=== PATIENT | male | born 1945 | race Caucasian/White ===

== ENCOUNTER → 2017-02-11 | Outpatient (CLI) | payer OTHER ==
[~2017-02-11] MED LIST: AGM875 PO; ASCA500 PO; OMEG10007 PO; PRLSR20 PO
[2017-02-11 09:41] LABS: URINE APPEARANCE CLEAR (CLEAR); URINE BILIRUBIN NEG (NEG); URINE COLOR YELLOW; URINE NITRITE NEG (NEG); URINE SPECIFIC GRAVITY 1.018 (1.000-1.030); UROBILINOGEN NEG (NEG)
[2017-02-11 09:41] LABS: BASO % 0.3 %; BASO ABS # 0.02 K/uL (0-0.2); COMPLETE YES; EOS % 3.5 %; HEMATOCRIT 40.6 % (42-52); IG% 0.1 %; LYMPH % 21.5 %; LYMPH ABS # 1.58 K/uL (1.2-3.4); MEAN CELL VOLUME 87.1 fL (80-100); MEAN CORPUSCULAR HEMOGLOBIN 29.2 pg (25-34); MEAN CORPUSCULAR HGB CONC 33.5 g/dl (32-36); MEAN PLATELET VOLUME 10.8 fL (7.4-10.4); MONO % 14.8 %; NEUT % 59.8 %; PLATELET COUNT 255 K/uL (130-400); RED BLOOD COUNT 4.66 M/uL (4.7-6.1); WHITE BLOOD COUNT 7.36 K/uL (4.8-10.8)
[2017-02-11 09:57] LABS: MANUAL MICROSCOPIC REQUIRED? NO; REVIEW REQ? NO
[2017-02-11 09:57] LABS: ALT/SGPT 23 U/L (12-78); AST/SGOT 15 U/L (15-37); BLOOD UREA NITROGEN 23 mg/dl (7-18); BUN/CREATININE RATIO 23.1 (10-20); CALCIUM 9.5 mg/dl (8.5-10.1); CARBON DIOXIDE 29 mmol/L (21-32); CHLORIDE 106 mmol/L (98-107); CHOLESTEROL 153 mg/dl (0-200); GLUCOSE 92 mg/dl (70-99); POTASSIUM 3.9 mmol/L (3.5-5.1); SODIUM 141 mmol/L (136-145); TRIGLYCERIDES 121 mg/dl (0-150); VERY LOW DENSITY LIPOPROT CALC 24 mg/dl
[2017-02-11 10:08] LABS: ALB/GLOB RATIO 0.8 (0.9-2); ALKALINE PHOSPHATASE 99 U/L (45-117); CHOLESTEROL/HDL RATIO 3.5; HDL CHOLESTEROL 44 mg/dl; LDL CHOLESTEROL CALCULATED 85 mg/dl
--- NOTE | 2017-02-19 13:13 | CODING QUERY MEDICAL NECESSITY ---
CQSUPPORTING DIAGNOSIS NEEDED A supporting diagnosis is required for the test/procedure performed on this patient in order for us to be reimbursed by the patient's insurance. Please provide a supporting diagnosis for the following test/procedure listed below next to the test name along with your signature. *If there is no additional diagnosis for this patient that would support the following test/procedure please document that below next to the test/procedure. Test(s)/Procedure(s) that require a supporting diagnosis: DOS 02/11/17 PROSTATE SPECIFIC (PSA) TEST Provider Signature: Date: Thank you Mary Grace Saucedo Health Information Management Once completed, please kindly fax back to [phone] For questions please call [phone]
== END | disposition home or self-care (01) ==
LOC: C.LAB1850 07:19
PROVIDERS: ATTEND Internal Medicine Pulmonary Disease
DX: I10 Essential (primary) hypertension (principal); E78.5 Hyperlipidemia, unspecified; N52.9 Male erectile dysfunction, unspecified

== ENCOUNTER 2023-07-13 05:13 | Observation (INO) ==
--- NOTE | 2023-06-19 13:56 | PAT Medication Instructions ---
Medication Instructions Date of Service June 19, 2023 Home Medications ascorbic acid (vitamin C) 1,000 mg tablet (Vitamin C) 1 g PO QAM atorvastatin 10 mg tablet 10 mg PO QAM losartan 50 mg tablet 50 mg PO QAM meloxicam 7.5 mg tablet 7.5 mg PO BID PRN ASK your surgeon for instructions meloxicam 7.5 mg tablet 7.5 mg PO BID PRN DO NOT take the morning of surgery ascorbic acid (vitamin C) 1,000 mg tablet (Vitamin C) 1 g PO QAM losartan 50 mg tablet 50 mg PO QAM Take morning of surgery With a small sip of water, OTHERWISE NOTHING TO EAT OR DRINK AFTER MIDNIGHT: atorvastatin 10 mg tablet 10 mg PO QAM Other Notes If you have any questions please call us at [phone] or [phone] or [phone] or [phone]
--- NOTE | 2023-06-30 15:26 | Anesthesiology Consultation ---
Date of Service June 30, 2023 Assessment & Plan (1) Encounter for pre-operative examination: - awaiting [place] PCP pre-operative evaluation and booking change to overnight. - Case discussed in detail with Dr. Lou including visual changes and brain MRI after surgery, abnormal EKG and outpatient joint request with home support individual age of 82 y/o. He advised patient is not acceptable for outpatient joint program, advised he needs PCP medical clearance prior to surgery given overall co-morbidities and age; and if cleared by PCP and at baseline regarding cough as noted below, patient can proceed without further evaluation or testing prior to surgery from his standpoint. I contacted patient who verbalized understanding and states will await call for PCP clearance appointment. Surgeon's office and OR made aware. - COVID positive 06/25/23 with residual cough productive of yellow sputum. Denies shortness of breath, wheezing, pharyngitis, fever or chills. He states paxlovid course is completed. He was instructed to call PAT if cough is not resolved by Thursday before surgery. Chart Review Chart Review: Pending: Refer to Additional Notes / Consult section and Patient seen in Pre Admission Testing Teaching & Discussion Pre-Anesthesia Teaching/Discussion Notes: Instructed NPO after midnight before surgery, except medications with 15 cc of water. Medication instructions provided according to the PAT guidelines. History Surgery Operation Date: 07/13/23 07:15 Proposed Procedures p OP: Right Anterior Total Hip Arthroplasty - Puneet Carrera DO Height/Weight Height: 5 ft 7.5 in Weight: 71.6 kg Allergies Allergy/AdvReac Type Severity Reaction Status Date / Time No Known Allergies Allergy Mild Verified 06/19/23 13:08 Medications Home Medications Medication Instructions Recorded Confirmed Last Taken ascorbic acid (vitamin C) 1,000 mg 1 g PO QAM 06/19/23 06/19/23 Unknown tablet (Vitamin C) atorvastatin 10 mg tablet 10 mg PO QAM 06/19/23 06/19/23 Unknown losartan 50 mg tablet 50 mg PO QAM 06/19/23 06/19/23 Unknown meloxicam 7.5 mg tablet 7.5 mg PO BID PRN Pain 06/19/23 06/19/23 Unknown nirmatrelvir 300 mg (150 mg See Rx Instructions PO .COMPLEX 06/25/23 Unknown x2)-ritonavir 100 mg tablet,dose #30 ea pack lansoprazole 15 mg capsule,delayed 15 mg PO QAM 06/30/23 06/30/23 Unknown release Past Medical History Medical History GERD (gastroesophageal reflux disease) controlled, stable per pt Hearing loss B/L hearing aids History of bleeding peptic ulcer Approximately age 48; no current issues History of blood transfusion in setting of bleeding ulcer in past History of COVID-19 06/25/2023 positive-residual cough and 04/2023 (home test)- loss taste/smell, cold symptoms, fever History of double vision 05/2023, experienced double vision (improving) Follows with Dr. Nguyen, awaiting brain MRI scheduled 08/04/2023 Hyperlipidemia Hypertension controlled, stable per pt Patient denies h/o seizures, heart attack, heart failure, DM, blood clots/DVTs or blood transfusions. Exercise / Class Metabolic Activity II 4-5 Yardwork/Stairs/Walk up hill (denies chest discomfort or shortness of breath with 1 FOS) Past Family History Family History Mother Colon cancer Parkinson disease Past Surgical History Surgical History History of colonoscopy (2011) History of esophagogastroduodenoscopy (EGD) History of tonsillectomy Past Anesthesia History No Hx of Anesthesia Complications and No Family Hx of Anesthesia Complications History of PONV No Hx of PONV and No Hx of Motion Sickness Social History Smoking Status: Never smoker Do You Dip or Chew Tobacco: No Hx Alcohol Use: Yes Alcohol type: beer alcohol intake frequency: holidays/special occasions only Hx Substance Use: No substance use type: does not use Review of Systems Snoring, denies witnessed apneas. Patient denies chest pain, shortness of breath, dyspnea on exertion, or palpitations. Physical Exam Vital Signs Vitals BP 141/90 P 94 TEMP 97.9 SP02 95% on RA RESP 17 Physical Patient resting comfortably in chair in no acute distress, alert and oriented, responding appropriately throughout visit Full cervical extension range of motion without pain TMD 3.5 finger breadths Mallampati Score 2 Dentition: one cap, denies chipped or loose teeth, crowns, implants or bridges Lungs: normal respiratory effort. Good air movement, clear throughout to auscultation, no adventitious breath sounds Cardiac: regular rate and rhythm, no murmurs noted Carotid arteries: negative bruit bilat Lab Results Anesthesia Preop Results Results Anesthesia Widget: WBC 8.17 K/ul (4.8-10.8) 06/30/23 Hgb 13.4 g/dl (14.0-18.0) L 06/30/23 Hct 40.3 % (42.0-52.0) L 06/30/23 Plt 284 K/uL (130-400) 06/30/23 Na 139 mmol/L (136-145) 06/30/23 K 4.2 mmol/L (3.5-5.1) 06/30/23 Cl 104 mmol/L (98-107) 06/30/23 CO2 28 mmol/L (21-32) 06/30/23 BUN 24 mg/dl (6-23) H 06/30/23 Creat 1.03 mg/dl (0.6-1.4) 06/30/23 Glucose Level 98 mg/dl (70-99(Fasting)) 06/30/23 PT 10.6 Seconds (9.0-12.0) 06/30/23 PTT 31 Seconds (21-31) 06/30/23 INR 1.0 (0.9-1.1) 06/30/23 TSH 0.580 uIu/ml (0.300-4.500) 05/11/23 Blood Type O Positive 06/30/23 Antibody Screen NEGATIVE 06/30/23 Testing Electrocardiogram Date: 06/30/23 NSR, rate 92 bpm Possible inferior infarct, age undetermined No significant change vs 04/28/96 EKG Chest X-Ray Date: 06/30/23 No acute process.
[2023-07-13] MEDS ORDERED: TRANEXAMIC ACID 1,000 MG **IV Pre-op IV SCH (06:00)
[2023-07-13] MEDS ORDERED: ceFAZolin 2000MG 2,000 MG/15 ML SYR IV SCH (06:00)
[2023-07-13] MEDS ORDERED: LR 60ML/HR IV SCH (06:00)
[2023-07-13] MEDS ORDERED: GABAPENTIN 300 MG CAP PO SCH (06:00)
[2023-07-13] MEDS ORDERED: TRANEXAMIC ACID 1,000 MG **IV Intra-op IV SCH (06:00)
[2023-07-13] MEDS ORDERED: LR 500ML BOLUS, THEN 15ML/HR IV SCH (06:00)
[2023-07-13] MEDS ORDERED: FAMOTIDINE 20 MG TAB PO SCH (06:00)
[2023-07-13] MEDS ORDERED: dexAMETHasone**PF** 10 MG/ML VIAL IV SCH (06:00)
[2023-07-13] MEDS ORDERED: ACETAMINOPHEN 500 MG TAB PO SCH (06:00)
[2023-07-13] MEDS ORDERED: ROPIV 0.5% 246mg, Ketorolac 30mg, EPINEPHrine 0.5mg in NSS INFIL SCH (06:00)
[2023-07-13] MEDS ORDERED: BUPIVACAINE 0.5 % 5 MG/1 ML PF 10ML VIAL ONE (06:08)
--- NOTE | 2023-07-13 06:21 | History & Physical Bridge Note ---
Date of Service July 13, 2023 History & Physical Bridge Note I have examined the patient, reviewed the History & Physical and in the interval since the performance of the History & Physical I have noted the following changes of clinical significance: no changes noted
[2023-07-13] MEDS ORDERED: fentaNYL citrate PF 100 MCG/2 ML VIAL ONE (06:52)
[2023-07-13] MEDS ORDERED: MIDAZOLAM HCL 1 MG/ML 2ML VIAL ONE (06:52)
[2023-07-13] MEDS ORDERED: ePHEDrine sulfate 50 MG/ML AMP IV PRN (06:55)
[2023-07-13] MEDS ORDERED: ONDANSETRON INJ 2 MG/ML 2 ML VIAL IV PRN ×2 (06:55→10:07)
[2023-07-13] MEDS ORDERED: fentaNYL citrate PF 100 MCG/2 ML VIAL IV PRN (06:55)
[2023-07-13] MEDS ORDERED: ATROPINE SULFATE 0.1 MG/ML 10ML SYR IV PRN (06:55)
[2023-07-13] MEDS ORDERED: ORTHO JOINT ANESTHETIC ONE (06:58)
[2023-07-13] MEDS ORDERED: PROPOFOL IV EMULSION 10 MG/ML 20 ML VIAL IV ONE (07:25)
[2023-07-13] MEDS ORDERED: ONDANSETRON INJ 2 MG/ML 2 ML VIAL ONE (07:25)
[2023-07-13] MEDS ORDERED: ARISTA ABSORBABLE HEMOSTAT 3GM TOP ONE (07:50)
[2023-07-13] MEDS ORDERED: ePHEDrine sulfate 50 MG/5 ML SYR ONE (08:28)
[2023-07-13] MEDS ORDERED: PHENYLEPHRINE 100MCG/ML 10ML SYR IV ONE (08:28)
--- NOTE | 2023-07-13 08:50 | Fluoroscopy Report ---
FL hip RT 1V CLINICAL HISTORY: RIGHT ANTERIOR HIPright hip arthroplasty COMPARISON STUDY: 06/30/2023 FLUOROSCOPY TIME: 10.7 seconds FLUOROSCOPY IMAGES: 1 EXPOSURE DOSE: 0.8632 mGy FINDINGS: Right hip arthroplasty demonstrates satisfactory alignment. Expected postoperative soft tis naa swelling with deep tissue air. IMPRESSION: Fluoroscopic assistance as above. ACT 112: Negative or not required by law. Electronically signed by: Jordin Costello M.D. 07/13/2023 8:48 AM
--- NOTE | 2023-07-13 09:29 | Operative Report ---
PG Post Operative Report Pre & Post Diagnosis Operation Date: 07/13/23 07:15 Pre-Op Diagnosis: Degenerative Joint Disease Right Hip Post-Op Diagnosis: Degenerative Joint Disease Right Hip I identified the patient and participated in the time-out.: Yes Procedure Operation Date: 07/13/23 07:15 Actual Procedures p Right Anterior Total Hip Arthroplasty, Uncemented(Right) - Puneet Carrera DO Surgeon Puneet Carrera DO [employer] Puneet Brown PA-C Estimated Blood Loss 150 Findings Consistent with Post-Op Diagnosis Specimens Right femoral head Description of Procedure Implants used I used a ZimmerBiomet total hip arthroplasty system with a size 5 high offset Avenir Complete stem, a 50 mm G7 cup with a 25mm screw, an E1 polyethylene liner, a 36 mm ceramic head with a 0 neck. Abdirahman arrived at the hospital for the above procedure. She was seen in the preoperative holding area and the operative extremity was identified and signed. She was given a spinal anesthetic, a preoperative antibiotic, and TXA. She was then taken back to the operating room and laid on the table in the supine position. She was given basic sedation. The operative leg was secured to a Puristst leg positioner. The hip was then prepped and draped in sterile fashion. A timeout was done and the patient and the operative extremity was pr operly identified. An anterior approach was used. Dissection was taken down through the fascia and the tensor muscle belly was retracted laterally and the rectus was retracted medially. The circumflex vessels were identified and ligated. The capsule was then incised and tagged for later repair. The femoral neck was then cut and the femoral head was removed. The acetabulum was exposed. Time was spent doing a complete circumferential labral release. Sequential reaming of the acetabulum up to a size 49 reamer was done. Final reamings were done under fluoroscopy to ensure appropriate version. A Biomet 50 mm G7 cup was then impacted into place. A single 25 mm screw was placed. The E1 polyethylene liner was then snapped into place. Surrounding soft tissues were then injected with 100 cc of an orthopedic pain control cocktail. The proximal femur was then exposed. Sequential broaching up to a size 5 broach was done. Off that broach a size 36 head with a 0 neck was trialed. The hip was reduced and fluoroscopic images showed anatomic alignment of the implants in acceptable length. The broach was removed. The final size 5 high offset Avenir Complete stem was then impacted into place. A ceramic 36 mm head with a 0 neck was then impacted onto the stem and the hip was reduced. Final fluoroscopic images showed anatomic alignment of the hip. The capsule was then closed with #1 Vicryl suture. A dilute betadyne lavage was then done for 3 minutes. The joint was then irrigated with normal saline solution. The fascia was closed with #1 PDS suture. Skin was closed with 2-0 Vicryl, yosef, and a Silverlon dressing. She was then transferred to a hospital bed and taken to the post anesthesia care unit in stable condition. She tolerated the procedure well. Puneet Brown PA-C, was present for the entire procedure. He was critical for patient positioning, prepping, draping, retraction exposure, wound closure and application of sterile dressing. I attest to the content of the Intraoperative Record and any orders documented therein. Any exceptions are noted below.
--- NOTE | 2023-07-13 10:00 | XRay Report ---
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 Right hip arthroplasty. Lateral skin yosef with expecte d postoperative soft tissue swelling and deep tissue air. Arterial calcifications. No acute fracture, dislocation or opaque foreign body. IMPRESSION: Right hip arthroplasty with expected postoperative changes. ACT 112: Negative or not required by law. The above report was generated using voice recognition software. It may contain grammatical, syntax o r spelling errors. Electronically signed by: Jordin Costello M.D. 07/13/2023 9:58 AM
[2023-07-13] MEDS ORDERED: HYDROmorphone INJ 0.5 MG/0.5 ML SYR IV PRN (10:07)
[2023-07-13] MEDS ORDERED: oxyCODONE HCL IR 5 MG TAB (IMMEDIATE RELEASE) PO PRN (10:07)
[2023-07-13] MEDS ORDERED: MAGNESIUM HYDROXIDE SUSP 30 ML UDC PO PRN (10:07)
[2023-07-13] MEDS ORDERED: NALOXONE HCL 0.4 MG/1 ML VIAL/CARP IV PRN (10:07)
[2023-07-13] MEDS ORDERED: METOCLOPRAMIDE HCL INJ 5 MG/ML 2 ML VIAL IV PRN (10:07)
[2023-07-13] MEDS ORDERED: bisacodyL 10 MG SUPP PR PRN (10:07)
[2023-07-13] MEDS ORDERED: SODIUM CHLORIDE 0.9% 1,000 ML IV SCH (10:07)
--- NOTE | 2023-07-13 10:29 | Anesthesiology Progress Note ---
Date of Service July 13, 2023 Anesthesia Post Procedure Vital Signs Vital Signs: Temp Pulse Pulse Resp BP Pulse Ox O2 Del Method 07/13/23 10:10 97.5 F L 94 H 18 143/84 H 94 Room Air 07/13/23 09:40 73 17 124/67 97 Nasal Cannula 07/13/23 09:25 97.2 F L 94 H 14 136/76 99 Nasal Cannula 07/13/23 09:15 95 H 14 127/70 95 Room Air 07/13/23 09:05 96 H 20 124/71 99 Oxymask 07/13/23 08:55 98.6 F 101 H 21 97/63 L 98 Oxymask 07/13/23 05:46 98.6 F 98 H 20 177/88 H 96 Room Air O2 Flow Rate 07/13/23 10:10 07/13/23 09:40 2 07/13/23 09:25 2 07/13/23 09:15 07/13/23 09:05 3 07/13/23 08:55 6 07/13/23 05:46 Transfer of Care Handoff Completed per policy Notes Mental Status: alert / awake / arousable and participated in evaluation Patient Amnestic to Procedure: Yes Nausea / Vomiting: adequately controlled Pain: adequately controlled Airway Patency, RR, SpO2: stable & adequate BP & HR: stable & adequate Hydration State: stable & adequate Neuraxial Anesthesia: was administered and sensory block is resolving Anesthetic Complications: no major complications apparent and Pt Satisfied with anesthetic care
[2023-07-13] MEDS: KETOROLAC TROMETHAMINE 15 MG/ML VIAL IV SCH ×3 (11:12→23:35)
[2023-07-13] MEDS: MULTIVITAMIN TAB PO SCH (11:13)
[2023-07-13] MEDS: PANTOprazole 40 MG TAB PO SCH (11:13)
[2023-07-13] MEDS: LOSARTAN POTASSIUM 50 MG TAB PO SCH (11:13)
[2023-07-13] MEDS: ATORVASTATIN 10 MG TAB PO SCH (11:13)
[2023-07-13] MEDS: DOCUSATE SODIUM 100 MG CAP PO SCH ×2 (11:13→20:21)
[2023-07-13] MEDS: ACETAMINOPHEN 500 MG TAB PO SCH ×2 (13:15→21:33)
[2023-07-13] MEDS: ceFAZolin 2000MG 2,000 MG/15 ML SYR IV SCH ×2 (14:20→23:35)
[2023-07-13] MEDS: ASPIRIN 81 MG ECTAB PO SCH (16:56)
[2023-07-13] MEDS ORDERED: SENNA 8.6 MG TAB PO SCH (21:00)
[2023-07-14] MEDS: KETOROLAC TROMETHAMINE 15 MG/ML VIAL IV SCH ×2 (05:28→10:00)
[2023-07-14] MEDS: ACETAMINOPHEN 500 MG TAB PO SCH (05:28)
[2023-07-14] MEDS ORDERED: dexAMETHasone 4 MG TAB PO SCH (08:00)
[2023-07-14] MEDS: ATORVASTATIN 10 MG TAB PO SCH (08:39)
[2023-07-14] MEDS: MULTIVITAMIN TAB PO SCH (08:39)
[2023-07-14] MEDS: DOCUSATE SODIUM 100 MG CAP PO SCH (08:39)
[2023-07-14] MEDS: ASPIRIN 81 MG ECTAB PO SCH (08:39)
[2023-07-14] MEDS: PANTOprazole 40 MG TAB PO SCH (08:39)
[2023-07-14] MEDS: LOSARTAN POTASSIUM 50 MG TAB PO SCH (08:39)
--- OUTSIDE RECORDS SUMMARY | 2023-07-14 10:22 | External Medical Summary | Summary of Care ---
Author Name Unknown Organization [facility] Address [address] [place] [address] Phone [phone] Care Team Providers Care Security Director Name Role Phone Unavailable Primary Care Provider Unavailabl e Reason for Visit * Reason Onset Date Comments Appointment 07/13/2023 Encounter Details Date Type Department Care Team (Late st Contact Info) Description 07/13/2023 Telephone Gastroenterology, [facility] [address] [facility] [place] [phone] Services, Scheduling [address] [place] [address] Appointment Allergies No known active allergiesdocumented as of this encounter (statuses as of 07/13/2023) Medications Medication Sig Dispensed Refills Start Date End Date Status PRILOSEC OTC 20 MG PO TBEC 1 tablet daily 0 Active LOSARTAN POTASSIUM 50 MG PO TABS one tablet daily 0 Active predniSONE 10 MG Oral Tablet (Deltasone)Indications: Lumbar radiculopathy Take 5 tabs for 2 days, 4 tabs for 2 days, 3 tabs for 2 days, 2 tabs for 2 days 1 tab for 2 days 30 Tablet 0 05/15/2022 Active documented as of this encounter (statuses as of 07/13/2023) Social History Tobacco Use Types Packs/Day Years Used Date Smoking Tobacco: Never Smokeless Tobacco: Never Alcohol Use Standard Drinks/Week Comments Yes 0 (1 standard drink = 0.6 oz pur e alcohol) Sex and Gender Information Value Date Recorded Sex Assigned at Not on file Gender Identity Not on file Sexual Orientation Not on file Job Start Date Occupation Industry Not on file Not on file Not on file documented as of this encounter Miscellaneous Notes * Telephone Encounter - Anny March OSA - 07/13/2023 1:41 PM EST Patient recently had hip surgery and will need to RS appointment for colonoscopy at this time. Please assist documented in this encounter Plan of Treatment Upcoming Encounters Date Type Department Care Team (Latest Contact Info) Description 07/22/2023 9:00 AM EST Hospital Encounter [facility]O [facility], Endoscopy Room [facility] [address] [place] [phone] Simran Lozano MD [address] [place] [address] 07/22/2023 9:00 AM EST - 07/22/2023 9:30 AM EST Surgery ENDO [facility], Endoscopy Room [facility] [address] [place] [phone] Simran Lozano MD [address] [place] [address] COLONOSCOPY FLEXIBLE PROXIMAL DIAGNOSTIC Scheduled Procedures Name Priority Associated Diagnoses Date/Ti me COLONOSCOPY FLEXIBLE PROXIMA L DIAGNOSTIC Anemia 07/22/2023 9:00 AM EST Health Maintenance Due Date Last Done Comments COVID-19 Vaccine (#1) 06/21/1946 Depression Screening 1957 Hepatitis C Screening 12/19/1961 DTaP,Tdap,and Td Vaccines (1 - Tdap) 12/19/1962 Zoster Vaccines (1 of 2) 12/19/1993 Pneumococcal Vaccine: 65+ Ye ars (1 - PCV) 12/19/2008 COLONOSCOPY-EVERY 5 YRS AGES 18-100 08/04/2016 08/04/2011 Influenza Vaccine (FLU shot) (#1) 2023 GARDASIL-HPV IMMUNIZATION SERIES Aged Out No longer eligible based on patient's age to complete this topic Hepatitis B Aged Out No longer eligi ble based on patient's age to complete this topic MENINGOCOCCAL (MENACTRA/MENVEO) Aged Out No longer eligible based on patient's age to complete this topic documented as of this encounter Medical Devices Not on filedocumented as of this encounter
--- NOTE | 2023-07-14 12:06 | Orthopedic Progress Note ---
Date of Service July 14, 2023 Assessment & Plan (1) Status post right hip replacement: Overall, he is doing quite well today with good pain control to the right hip. He will work with physical therapy later this morning work on ambulation and range of motion exercises. He is on aspirin for DVT prophylaxis. He can be discharged home later this morning pending physical therapy evaluation. He will follow-up with orthopedics in 2 weeks for postoperative care. Subjective . Abdirahman was seen and evaluated this morning resting comfortably in bed in no apparent distress. He notes that his right hip pain is well-controlled. He has been up and ambulating with no significant issues. He has yet to be seen by physical therapy this morning. He denies any other concerns today. Review of Systems All systems reviewed & are unremarkable except as noted in HPI & below. Physical Exam . On physical examination of right hip, dressing is clean, dry, intact. His leg is out in full extension. He has active plantarflexion and dorsiflexion to the right ankle. +2 DP and PT pulses. Less than 2-second capillary refill. Normal sensation. Neurovascular intact. Results & Data Results & Data Laboratory Results . Diagnostic Findings . Postoperative x-rays of the right hip show prosthesis to be in anatomical alignment with no signs of fracture complication or loosening. PG Care Time/CCT Total # of Minutes Spent Total Time Spent with Patient: Total time spent is greater than 50% in coordination of care (as documented) at patient's floor/unit and/or counseling patient: Coding Level of Care Code 63016 Post Operative Follow-Up Diagnoses Status post right hip replacement Z96.641
--- NOTE | 2023-07-14 12:08 | Discharge Summary ---
Date of Service July 14, 2023 Principal Diagnosis Same as "Discharge Diagnosis" noted below under Discharge Instructions. Discharge Exam . On physical examination of right hip, dressing is clean, dry, intact. His leg is out in full extension. He has active plantarflexion and dorsiflexion to the right ankle. +2 DP and PT pulses. Less than 2-second capillary refill. Normal sensation. Neurovascular intact. Discharge Data Procedures Performed Operation Date: 07/13/23 07:15 Actual Procedures p Right Anterior Total Hip Arthroplasty, Uncemented(Right) - Puneet Carrera DO Ordered Studies 07/13/23 07:15 FL hip RT 1V Routine Hospital Course (1) Status post right hip replacement: On July 13, 2023 Abdirahman arrived at [facility] and underwent a right anterior total hip arthroplasty performed by Dr. Carrera with no complications. He had a spinal anesthetic. Postoperatively, he was started on aspirin for DVT prophylaxis and transferred to the general orthopedic floor in stable condition. His hospital course was uneventful. On postoperative day #1, his vital signs were stable and his pain was well-controlled. He participated well with physical therapy work on ambulation and range of motion exercises. He was then discharged home in stable condition. He will follow-up with orthopedics in 2 weeks for postoperative care. PG Care Time/CCT Total # of Minutes Spent Total Time Spent with Patient: Total time spent is greater than 50% in coordination of care (as documented) at patient's floor/unit and/or counseling patient: Discharge Plan Discharge Items Patient Disposition: Home - Home Health Services Reason For Visit: Degenerative Joint Disease Right Hip Discharge Diagnosis: Same Activity: Per Instructions section Non-emergency contact: Surgeon Call non-emergency contact if: your temperature is above 101.5, your wound has increased redness and your wound has increased drainage Follow-up/Referrals: Luke Newman MD [Primary Care Provider] - Diet: Regular Addtl Attending Provider Instructions: Activity and Therapy Recommendations: * If you are using [facility] then therapy will be provided at your home until they feel you have accomplished all of your goals. * If you are using [facility] then Physical Therapy will be provided until they feel you are ready to start Outpatient Physical Therapy. * If you are not using home therapy then Outpatient Physical Therapy should start about 3-5 days from your day of surgery. Therapy will last about 6-10 weeks * You were shown a series of exercises in the hospital. Do these exercises three times each day including the exercises you were shown in physical therapy. * Get up and walk several times each day.~ For the first four weeks, try not to stand or walk for more than one hour at a time. If you do stand or walk for more than one hour, you will not hurt anything, but your leg will likely swell.~~ * As you feel comfortable, you may change from the walker or crutches to a cane and~then to independent walking. Medications: * Narcotic You will likely be sent home from the hospital with a prescription for the narcotic pain medication that worked best throughout your stay. * Cefadroxil -take the antibiotic twice a day for 10 days to help prevent infection. * Aspirin Most patients will be required to take Aspirin 81mg twice a day for 6 weeks after surgery. This is obtained [id number] and a prescription is not necessary. * Other medications may be prescribed for specific circumstances. If you have any questions, please call the office at . * Resume previous home medications unless otherwise instructed TEDs/Elastic Stockings: The white elastic stockings help limit swelling and prevent blood clots from forming in your legs. The more you wear them, the more they work. Wear them for six weeks. Dressing Care: Leave the Silverlon dressing in place for 7 days. After 7 days you may remove the dressing. If the incision is not draining then you may leave the yosef open to air. If there is a little bit of drainage or if the yosef are getting stuck on your clothing then cover the incision with a dry dressing. The yosef will be removed at your 2 week follow-up appointment. Showering: You may shower with the Silverlon dressing in place. Do not let the shower spray hit the dressing directly. Pat the Silverlon dressing dry. If the dressing becomes wet underneath, then simply remove the dressing. Keep the incision dry until you are 7 days out from the day of surgery. After 7 days you may remove the Silverlon dressing and shower with the yosef exposed. Let soapy water run over the yosef and pat them dry. Do not scrub or soak the incision. Things To Watch For: * Drainage from the incision site that occurs more than one week after your surgery. * Increased redness at the incision site. * Fever above 102 degrees Fahrenheit. * Unusual chest pain or shortness of breath. * Call [facility] at with any of the above problems Follow-Up Visit: Follow-up with Dr. Carrera's PA (Puneet Brown) 2-3 weeks after your day of surgery. He will remove your yosef and answer any questions. If you have any additional questions or concerns, Dr Carrera is usually in the office at the same time and will be available An appointment was probably scheduled when you signed-up for surgery in the office. If you have any questions call Office Instructions: More detailed instructions as well as Frequently Asked Questions were provided in a folder by our office when you signed-up for surgery. Please review these instructions when you get home. If you have any further questions or concerns, please feel free to call the office at [phone] Pending Studies at Discharge: No Stand-Alone Forms: [facility], Smoking Cessation Medications and DC Order Prescriptions: New aspirin 81 mg Tablet,Delayed Release (Dr/Ec) 81 mg PO BID 42 Days Qty: 0 0RF oxycodone 5 mg Tablet 5 mg PO Q6 PRN (Reason: pain) Qty: 30 0RF cefadroxil 500 mg capsule 500 mg PO BID 10 Days Qty: 20 0RF Continued (DME) Wheeled Walker Misc See Rx Instructions .MEDSUPPLY Qty: 1 0RF Rx Instructions: As directed omeprazole 10 mg capsule,delayed release(DR/EC) 10 mg PO DAILY ascorbic acid (vitamin C) [Vitamin C] 1,000 mg Tablet 1 g PO QAM losartan 50 mg tablet 50 mg PO QAM atorvastatin [Lipitor] 10 mg tablet 10 mg PO QAM Rx Instructions: TAKE ONE TABLET BY MOUTH ONE TIME DAILY ascorbic acid (vitamin C) [Vitamin C] 1,000 mg Tablet 1 g PO DAILY Discontinued meloxicam 7.5 mg tablet 7.5 mg PO BID PRN (Reason: Pain) Rx Instructions: take 1 tablet by mouth ONCE or twice a day with food Admission Data Admit Date/Time: 07/13/23 08:55 Attending Provider: Puneet Carrera Admit Provider: Puneet Carrera Primary Care Provider: Luke Newman Other Interventions: Discharge Summary Assessment (RN) Last Done: 07/14/23 10:08
== END 2023-07-14 11:07 | disposition home health service (06) ==
LOC: ASU 05:13 → 3E 05:13

== ENCOUNTER 2023-11-13 06:36 | Observation (INO) ==
--- NOTE | 2023-10-09 09:24 | PAT Medication Instructions ---
Medication Instructions Date of Service October 09, 2023 Home Medications Medication Instructions Recorded losartan 50 mg tablet 50 mg PO QAM #90 tabs 08/11/23 atorvastatin 10 mg tablet (Lipitor) 10 mg PO QAM ascorbic acid (vitamin C) 1,000 mg tablet (Vitamin C) 1 g PO QAM losartan 50 mg tablet 50 mg PO QAM aspirin 81 mg capsule 81 mg PO BID lansoprazole 15 mg capsule,delayed release 15 mg PO QAM naproxen sodium 220 mg capsule (Aleve) 440 mg PO BID PRN Pain tamsulosin 0.4 mg capsule 0.4 mg PO QAM ASK your surgeon for instructions naproxen sodium 220 mg capsule (Aleve) 440 mg PO BID PRN Pain ASK your prescriber and surgeon aspirin 81 mg capsule 81 mg PO BID DO NOT take the morning of surgery ascorbic acid (vitamin C) 1,000 mg tablet (Vitamin C) 1 g PO QAM losartan 50 mg tablet 50 mg PO QAM Take morning of surgery With a small sip of water, OTHERWISE NOTHING TO EAT OR DRINK AFTER MIDNIGHT: atorvastatin 10 mg tablet (Lipitor) 10 mg PO QAM lansoprazole 15 mg capsule,delayed release 15 mg PO QAM tamsulosin 0.4 mg capsule 0.4 mg PO QAM Other Notes If you have any questions please call us at [phone] or [phone] or [phone] or [phone]
--- NOTE | 2023-10-29 14:37 | Anesthesiology Consultation ---
Date of Service October 29, 2023 Assessment & Plan (1) Encounter for pre-operative examination: Plan - PCP office visit 10/19/23 [place]: "... 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 Lozano for a colonoscopy because his mother had colon cancer and he has mild anemia...will set that up for the summer..." - Outpatient joint assessment: Patient is currently scheduled for inpatient pathway. If re-evaluated and patient/surgeon requests outpatient pathway, patient is not recommended candidate for outpatient joint program from anesthesia standpoint. Chart Review Chart Review: Acceptable Risk for Surgery and Patient seen in Pre Admission Testing Teaching & Discussion Pre-Anesthesia Teaching/Discussion Notes: Instructed NPO after midnight before surgery, except medications with 15 cc of water. Medication instructions provided according to the PAT guidelines. History Surgery Operation Date: 11/13/23 11:00 Proposed Procedures p Left Anterior Total Hip Arthroplasty - Puneet Carrera DO Height/Weight Height: 5 ft 7.5 in Weight: 73.9 kg Allergies Allergy/AdvReac Type Severity Reaction Status Date / Time No Known Allergies Allergy Mild Verified 10/19/23 08:09 Medications Home Medications Medication Instructions Recorded Confirmed Last Taken ascorbic acid (vitamin C) 1,000 mg 1 g PO QAM 07/13/23 10/19/23 07/11/23 tablet (Vitamin C) losartan 50 mg tablet 50 mg PO QAM #90 tabs 08/11/23 10/19/23 Unknown aspirin 81 mg capsule 81 mg PO BID 10/08/23 10/19/23 Unknown lansoprazole 15 mg capsule,delayed 15 mg PO QAM 10/08/23 10/19/23 Unknown release tamsulosin 0.4 mg capsule 0.4 mg PO QAM 10/08/23 10/19/23 Unknown atorvastatin 10 mg tablet See Rx Instructions .Route 10/29/23 Unknown .COMPLEX #100 tabs Past Medical History Medical History GERD (gastroesophageal reflux disease) controlled, stable per pt Hearing loss B/L hearing aids History of bleeding peptic ulcer Approximately age 48; no current issues History of blood transfusion In setting of bleeding ulcer in past History of COVID-19 ~06/2023 (home test): symptoms resolved History of double vision 05/2023, experienced double vision (improving)- most is gone Follows with Dr. Nguyen, brain MRI 08/04/2023 - "pretty normal for my age" Hyperlipidemia Hypertension controlled, stable per pt Osteoarthritis of left hip Prostate nodule Possible prostate nodule vs lesion on MRI Being [place] [facility] [place], t/c biopsy after hip surgery Patient denies h/o stroke, seizures, heart attack, heart failure, DM, or blood clots/DVTs. Exercise / Class Metabolic Activity II 4-5 Yardwork/Stairs/Walk up hill (denies chest discomfort or shortness of breath with one flight of stairs) Past Family History Family History Mother Colon cancer Parkinson disease Past Surgical History Surgical History History of colonoscopy (2011) History of esophagogastroduodenoscopy (EGD) History of tonsillectomy History of total right hip arthroplasty (07/13/23) Right anterior LOVE: SAB at L3-4, 1 attempt at [facility] Past Anesthesia History No Hx of Anesthesia Complications and No Family Hx of Anesthesia Complications History of PONV No Hx of PONV and No Hx of Motion Sickness Social History Smoking Status: Never smoker Do You Dip or Chew Tobacco: No Hx Alcohol Use: Yes Alcohol type: beer alcohol intake frequency: a few times a month Hx Substance Use: No substance use type: does not use Review of Systems Snoring, denies witnessed apneas. Patient denies chest pain, shortness of breath, dyspnea on exertion, fever, chills, cough, wheezing, or palpitations. Physical Exam Vital Signs Vitals BP 110/72 P 82 TEMP 98.4 SP02 97% on RA RESP 18 Physical Patient resting comfortably in chair in no acute distress, alert and oriented, responding appropriately throughout visit Full cervical extension range of motion without pain TMD 3.5 finger breadths Mallampati Score 2 Dentition: iseveral caps/crowns, denies chipped or loose teeth, implants or bridges Lungs: normal respiratory effort. Good air movement, clear throughout to auscultation, no adventitious breath sounds Cardiac: regular rate and rhythm, no murmurs noted Carotid arteries: negative bruit bilat Lab Results Anesthesia Preop Results Results Anesthesia Widget: WBC 4.40 K/ul (4.8-10.8) L 10/16/23 Hgb 12.4 g/dl (14.0-18.0) L 10/16/23 Hct 38.0 % (42.0-52.0) L 10/16/23 Plt 178 K/uL (130-400) 10/16/23 Na 141 mmol/L (136-145) 10/16/23 K 4.3 mmol/L (3.5-5.1) 10/16/23 Cl 108 mmol/L (98-107) H 10/16/23 CO2 27 mmol/L (21-32) 10/16/23 BUN 24 mg/dl (6-23) H 10/16/23 Creat 0.99 mg/dl (0.6-1.4) 10/16/23 Glucose Level 100 mg/dl (70-99(Fasting)) H 10/16/23 PT 10.4 Seconds (9.0-12.0) 10/29/23 PTT 29 Seconds (21-31) 10/29/23 INR 1.0 (0.9-1.1) 10/29/23 TSH 0.997 uIu/ml (0.300-4.500) 10/16/23 Urine Color Yellow 10/16/23 Urine Appearance Clear (Clear) 10/16/23 Urine pH 6.0 (4.5-7.5) 10/16/23 Urine Specific [place] 1.015 (1.000-1.030) 10/16/23 Urine Protein Negative (Negative) 10/16/23 Urine Glucose (UA) Negative (Negative) 10/16/23 Urine Ketones Negative (Negative) 10/16/23 Urine Blood Negative (Negative) 10/16/23 Urine Nitrite Negative (Negative) 10/16/23 Urine Bilirubin Negative (Negative) 10/16/23 Urine Urobilinogen Negative (Negative) 10/16/23 Urine Leukocyte Esterase Negative (Negative) 10/16/23 Blood Type O Positive 10/29/23 Antibody Screen NEGATIVE 10/29/23 Testing Electrocardiogram Date: 06/30/23 NSR, rate 92 bpm Possible inferior infarct, age undetermined No significant change vs 04/28/96 Chest X-Ray Date: 06/30/23 *1view* No acute process. Other Testing Brain MRI 08/04/23 1. No acute intracranial abnormality. 2. Involutional changes with suggestion of mild chronic microvascular ischemic disease. 3. No abnormal enhancement.
--- NOTE | 2023-11-13 06:29 | History & Physical Bridge Note ---
Date of Service November 13, 2023 History & Physical Bridge Note I have examined the patient, reviewed the History & Physical and in the interval since the performance of the History & Physical I have noted the following changes of clinical significance: no changes noted
[~2023-11-13 06:36] MED LIST changes: -AGM875 PO; -ASCA500 PO; +BUPIVACAINE 0.5 % 5 MG/1 ML PF 10ML VIAL ONE; -OMEG10007 PO; -PRLSR20 PO
[2023-11-13] MEDS ORDERED: PROPOFOL IV EMULSION 10 MG/ML 20 ML VIAL IV ONE (06:54)
[2023-11-13] MEDS ORDERED: MIDAZOLAM HCL 1 MG/ML 2ML VIAL ONE (06:54)
[2023-11-13] MEDS ORDERED: ONDANSETRON INJ 2 MG/ML 2 ML VIAL ONE (06:54)
[2023-11-13] MEDS ORDERED: LIDOCAINE 2% 2 ML VIAL/AMP(20MG/ML) INFIL ONE (06:54)
[2023-11-13] MEDS: GABAPENTIN 300 MG CAP PO SCH (07:19)
[2023-11-13] MEDS: FAMOTIDINE 20 MG TAB PO SCH (07:19)
[2023-11-13] MEDS: LR 500ML BOLUS, THEN 15ML/HR IV SCH (07:19)
[2023-11-13] MEDS: LR 60ML/HR IV SCH (07:20)
[2023-11-13] MEDS: dexAMETHasone**PF** 10 MG/ML VIAL IV SCH (07:20)
[2023-11-13] MEDS: ACETAMINOPHEN 500 MG TAB PO SCH ×2 (07:20→14:54)
[2023-11-13] MEDS ORDERED: ATROPINE SULFATE 0.1 MG/ML 10ML SYR IV PRN (07:22)
[2023-11-13] MEDS ORDERED: ePHEDrine sulfate 50 MG/ML AMP IV PRN (07:22)
[2023-11-13] MEDS ORDERED: fentaNYL citrate PF 100 MCG/2 ML VIAL IV PRN (07:22)
[2023-11-13] MEDS ORDERED: ONDANSETRON INJ 2 MG/ML 2 ML VIAL IV PRN ×2 (07:22→11:32)
[2023-11-13] MEDS: TRANEXAMIC ACID 1,000 MG **IV Pre-op IV SCH (07:31)
[2023-11-13] MEDS: ceFAZolin 2000MG 2,000 MG/15 ML SYR IV SCH ×2 (07:48→14:54)
[2023-11-13] MEDS ORDERED: fentaNYL citrate PF 100 MCG/2 ML VIAL ONE (08:14)
[2023-11-13] MEDS: ORTHO JOINT ANESTHETIC ONE (08:37)
[2023-11-13] MEDS ORDERED: PHENYLEPHRINE 100MCG/ML 10ML SYR IV ONE (08:47)
[2023-11-13] MEDS ORDERED: ePHEDrine sulfate 50 MG/5 ML SYR ONE (08:47)
[2023-11-13] MEDS: TRANEXAMIC ACID 1,000 MG **IV Intra-op IV SCH (08:51)
[2023-11-13] MEDS: ROPIV 0.5% 246mg, Ketorolac 30mg, EPINEPHrine 0.5mg in NSS INFIL SCH (08:54)
--- NOTE | 2023-11-13 08:56 | Operative Report ---
PG Post Operative Report Pre & Post Diagnosis Operation Date: 11/13/23 08:00 Pre-Op Diagnosis: Osteoarthritis of Left Hip Post-Op Diagnosis: Osteoarthritis of Left Hip I identified the patient and participated in the time-out.: Yes Procedure Operation Date: 11/13/23 08:00 Actual Procedures p Left Anterior Total Hip Arthroplasty(Left) - Puneet Carrera DO Surgeon Puneet Carrera DO [employer] Puneet Brown PA-C Estimated Blood Loss 200 Findings Consistent with Post-Op Diagnosis Specimens Left femoral head Description of Procedure Implants used I used a ZimmerBiomet total hip arthroplasty system with a size 5 high offset Avenir Complete stem, a 50 mm G7 cup with a 25mm screw, an E1 polyethylene liner, a 36 mm ceramic head with a 0 neck. Abdirahman arrived at the hospital for the above procedure. He was seen in the preoperative holding area and the operative extremity was identified and signed. He was given a spinal anesthetic, a preoperative antibiotic, and TXA. He was then taken back to the operating room and laid on the table in the supine position. He was given basic sedation. The operative leg was secured to a Puristst leg positioner. The hip was then prepped and draped in sterile fashion. A timeout was done and the patient and the operative extremity was properly identified. An anterior approach was used. Dissection was taken down through the fascia and the tensor muscle belly was retracted laterally and the rectus was retracted medially. The circumflex vessels were identified and ligated. The capsule was then incised and tagged for later repair. The femoral neck was then cut and the femoral head was removed. The acetabulum was exposed. Time was spent doing a complete circumferential labral release. Sequential reaming of the acetabulum up to a size 49 reamer was done. Final reamings were done under fluoroscopy to ensure appropriate version. A Biomet 50 mm G7 cup was then impacted into place. A single 25 mm screw was placed. The E1 polyethylene liner was then snapped into place. Surrounding soft tissues were then injected with 100 cc of an orth opedic pain control cocktail. The proximal femur was then exposed. Sequential broaching up to a size 5 broach was done. Off that broach a size 36 head with a 0 neck was trialed. The hip was reduced and fluoroscopic images showed anatomic alignment of the implants in acceptable length. The broach was removed. The final size 5 high offset Avenir Complete stem was then impacted into place. A ceramic 36 mm head with a 0 neck was then impacted onto the stem and the hip was reduced. Final fluoroscopic images showed anatomic alignment of the hip. The capsule was then closed with #1 Vicryl suture. A dilute betadyne lavage was then done for 3 minutes. The joint was then irrigated with normal saline solution. The fascia was closed with #1 PDS suture. Skin was closed with 2-0 Vicryl, yosef, and a Silverlon dressing. He was then transferred to a hospital bed and taken to the post anesthesia care unit in stable condition. He tolerated the procedure well. Puneet Brown PA-C, was present for the entire procedure. He was critical for patient positioning, prepping, draping, retraction exposure, wound closure and application of sterile dressing. I attest to the content of the Intraoperative Record and any orders documented therein. Any exceptions are noted below.
--- NOTE | 2023-11-13 09:44 | Fluoroscopy Report ---
FL hip LT 1V CLINICAL HISTORY: LEFT ANTERIOR HIP COMPARISON STUDY: None. FLUOROSCOPY TIME: 15 seconds. FLUOROSCOPY IMAGES: 1 Ka,r: 2.0 mGy FINDINGS: There is a left total arthroplasty. The hardware is intact. No fracture or dislocation. IMPRESSION: Fluoroscopic assistance as above. ACT 112: Negative or not required by law. Electronically signed by: Marco Mosquera M.D. 11/13/2023 9:41 AM
[2023-11-13] MEDS ORDERED: NALOXONE HCL 0.4 MG/1 ML VIAL/CARP IV PRN (11:32)
[2023-11-13] MEDS ORDERED: oxyCODONE HCL IR 5 MG TAB (IMMEDIATE RELEASE) PO PRN (11:32)
[2023-11-13] MEDS ORDERED: HYDROmorphone INJ 0.5 MG/0.5 ML SYR IV PRN (11:32)
[2023-11-13] MEDS ORDERED: MAGNESIUM HYDROXIDE SUSP 30 ML UDC PO PRN (11:32)
[2023-11-13] MEDS ORDERED: bisacodyL 10 MG SUPP PR PRN (11:32)
[2023-11-13] MEDS ORDERED: METOCLOPRAMIDE HCL INJ 5 MG/ML 2 ML VIAL IV PRN (11:32)
[2023-11-13] MEDS: KETOROLAC TROMETHAMINE 15 MG/ML VIAL IV SCH (11:47)
[2023-11-13] MEDS: SODIUM CHLORIDE 0.9% 1,000 ML IV SCH (11:47)
--- NOTE | 2023-11-13 11:54 | Anesthesiology Progress Note ---
Date of Service November 13, 2023 Anesthesia Post Procedure Vital Signs Vital Signs: Temp Pulse Pulse Resp BP Pulse Ox O2 Del Method 11/13/23 11:32 98.6 F 80 16 131/91 96 Room Air 11/13/23 11:20 97.3 F L 81 21 129/83 97 Room Air 11/13/23 11:05 83 15 121/66 96 Room Air 11/13/23 10:55 82 10 L 121/67 95 Room Air 11/13/23 10:45 79 12 119/73 95 Room Air 11/13/23 10:35 76 12 113/65 94 Room Air 11/13/23 10:25 75 18 122/70 93 Room Air 11/13/23 10:15 78 11 L 117/66 94 Room Air 11/13/23 10:05 80 14 122/76 94 Room Air 11/13/23 09:55 82 16 122/76 100 Oxymask 11/13/23 09:45 76 8 L 108/69 100 Oxymask 11/13/23 09:35 77 12 112/67 100 Oxymask 11/13/23 09:25 94 H 17 99/60 L 99 Oxymask 11/13/23 09:18 97.0 F L 92 H 18 104/65 95 Oxymask 11/13/23 07:01 98.4 F 89 18 160/97 H 97 Room Air O2 Flow Rate 11/13/23 11:32 11/13/23 11:20 11/13/23 11:05 11/13/23 10:55 11/13/23 10:45 11/13/23 10:35 11/13/23 10:25 11/13/23 10:15 11/13/23 10:05 11/13/23 09:55 5 11/13/23 09:45 5 11/13/23 09:35 5 11/13/23 09:25 10 11/13/23 09:18 10 11/13/23 07:01 Transfer of Care Handoff Completed per policy Notes Mental Status: alert / awake / arousable and participated in evaluation Patient Amnestic to Procedure: Yes Nausea / Vomiting: adequately controlled Pain: adequately controlled Airway Patency, RR, SpO2: stable & adequate BP & HR: stable & adequate Hydration State: stable & adequate Neuraxial Anesthesia: was administered and sensory block is resolving Anesthetic Complications: no major complications apparent and Pt Satisfied with anesthetic care
--- NOTE | 2023-11-13 15:20 | XRay Report ---
AP PELVIS, CROSSTABLE LATERAL LEFT HIP History: Left total hip arthroplasty. Degenerative arthritis. Postop. FINDINGS: The patient is status post a left total hip arthroplasty. The hardware is intact. No fractu re or dislocation. Skin yosef are in place. Prior right total hip arthroplasty. IMPRESSION: Left total hip arthroplasty. No evidence for hardware complication. ACT 112: Negative or not required by law. Electronically signed by: Marco Mosquera M.D. 11/13/2023 3:18 PM
[2023-11-13] MEDS: ASPIRIN 81 MG ECTAB PO SCH (19:52)
[2023-11-13] MEDS: DOCUSATE SODIUM 100 MG CAP PO SCH (19:52)
[2023-11-13] MEDS: SENNA 8.6 MG TAB PO SCH (19:52)
--- NOTE | 2023-11-14 08:01 | Orthopedic Progress Note ---
Date of Service November 14, 2023 Assessment & Plan (1) Status post left hip replacement: Overall he is doing very well. He is not having much pain in the left hip. He will be seen by physical therapy today for ambulation and range of motion exercises. He is on aspirin for DVT prophylaxis. He can be discharged home later today. He will follow-up with orthopedics in 2 weeks. Quincy Gary was seen and examined at bedside this morning. Overall is doing very well. He is not having much pain in the left hip. He has been up and ambulating around the room. He has no complaints.. Review of Systems All systems reviewed & are unremarkable except as noted in HPI & below. Physical Exam On physical examination the left hip, the dressing is clean and dry. His leg is out full extension. He has active dorsiflexion plantarflexion of his left ankle.. Results & Data Results & Data Laboratory Results . Diagnostic Findings Postoperative x-rays of the left hip show the prosthesis to be in anatomic ali gnment without any evidence of fracture complication, or loosening.. PG Care Time/CCT Total # of Minutes Spent Total Time Spent with Patient: Total time spent is greater than 50% in coordination of care (as documented) at patient's floor/unit and/or counseling patient: Coding Level of Care Code 12094 Post Operative Follow-Up Diagnoses Status post left hip replacement Z96.642
[2023-11-14] MEDS: TAMSULOSIN HCL 0.4 MG CAP PO SCH (08:39)
[2023-11-14] MEDS: dexAMETHasone 4 MG TAB PO SCH (08:39)
[2023-11-14] MEDS: LOSARTAN POTASSIUM 50 MG TAB PO SCH (08:39)
[2023-11-14] MEDS: MULTIVITAMIN TAB PO SCH (08:39)
[2023-11-14] MEDS: ATORVASTATIN 10 MG TAB PO SCH (08:40)
== END 2023-11-14 12:12 | disposition home or self-care (01) ==
LOC: ASU 06:36 → 3E 06:36